=== PATIENT | female | born 1955 | race Caucasian/White ===

== ENCOUNTER 2016-08-07 13:04 | Emergency (ER) | payer BC ==
[2016-08-07 13:14] VITALS: TEMP 98.3; BMI 55.5
[2016-08-07] MEDS ORDERED: predniSONE 20 MG TABLET (UD) PO ONE (14:07)
[2016-08-07] MEDS ORDERED: diphenhydrAMINE HCL 25 MG CAPSULE (FP) PO ONE ×3 (14:07→14:23)
[2016-08-07] MEDS ORDERED: RANITIDINE HCL 150 MG TABLET (FP) PO ONE (14:08)
--- NOTE | 2016-08-07 14:15 | PDOC ---
History of Present Illness - General Chief Complaint: Edema Stated Complaint: ALLERGIC REACTION Time Seen by Provider: 08/07/16 13:30 History Source: Patient - History of Present Illness Timing/Duration: 1-3 hours Past History - Past Medical History Allergies/Adverse Reactions: Allergies Allergy/AdvReac Type Severity Reaction Status Date / Time No Known Allergies Allergy Verified 08/07/16 13:13 Home Medications: Ambulatory Orders Amlodipine Besylate [Norvasc -] 5 mg PO DAILY 02/02/14 Atorvastatin Ca [Lipitor] 20 mg PO DAILY 02/02/14 Valsartan/Hydrochlorothiazide [Diovan Hct 320-12.5 mg Tab] 1 each PO DAILY 02/02 Acetaminophen [Tylenol .Extra-Strength -] 1,000 mg PO Q6H PRN 02/04/14 Amoxicillin/Potassium Clav [Augmentin 500-125 Tablet] 1 each PO BID #14 tablet 02/04/14 Hydrocodone Bit/Acetaminophen [Vicodin 5-300mg -] 1 - 2 tab PO Q6H #60 tab 02/04 Ibuprofen [Advil -] 200 mg PO TID PRN 02/04/14 Epinephrine (Epi-Pen 0.3MG) [Epipen 0.3MG -] 0.3 mg IM ASDIR #2 pens 08/07/16 Famotidine [Pepcid] 20 mg PO DAILY #7 tablet 08/07/16 Prednisone [Deltasone -] 40 mg PO DAILY #8 tablet 08/07/16 HTN: Yes Hypercholesterolemia: Yes - Psycho/Social/Smoking Cessation Hx Anxiety: No Suicidal Ideation: No Smoking History: Never smoked Have you smoked in the past 12 months: No Hx Alcohol Use: Yes (SOCIAL) Drug/Substance Use Hx: No Substance Use Type: None Review of Systems - Review of Systems HEENTM: No: Throat Pain, Throat Swelling Respiratory: No: Shortness of Breath, Stridor, Wheezing *Physical Exam - Vital Signs Last Vital Signs Temp Pulse Resp BP Pulse Ox 98.3 F 82 20 146/75 94 L 08/07/16 13:10 08/07/16 13:10 08/07/16 13:10 08/07/16 13:10 08/07/16 13:10 - Physical Exam General Appearance: Yes: Appropriately Dressed. No: Apparent Distress HEENT: positive: Normal Voice, Pharynx Normal, Other (upper lip edema). negative: Scleral Icterus (R), Scleral Icterus (L) Neck: positive: Supple. negative: Stridor Respiratory/Chest: positive: Lungs Clear, Normal Breath Sounds. negative: Respiratory Distress Cardiovascular: positive: Regular Rate, S1, S2 Integumentary: positive: Dry, Warm Neurologic: positive: Fully Oriented, Alert, Normal Mood/Affect Medical Decision Making - Medical Decision Making 08/07/16 14:15 61-year-old female, morbidly obesed, high blood pressure, on valsartan, only allergy is to tumaric spice which cause pt to break out in hives as per pt, here with upper lip swelling that started approximately this morning approximately half an hour after eating tuna from [employer]. Patient states she is not certain if tumaric was in the premade tune that she bought. Patient denies rash, itching, tongue swelling, voice changes or respiratory symptoms. No history of anaphylaxis. Patient well-appearing and stable with symmetric edema to upper lip, oropharynx clear otherwise and no stridor. Chest/lungs clear. Angioedema m/l 2/2 ARB given isolated angioedema. Took 25 mg of Benadryl approximately 2 hours ago. Will give additional dose of Benadryl with steroids and H2 yina and observe in ED for 2 hrs as per discussion with ED attending 08/07/16 14:17 08/07/16 16:15 Pt's angioedema minimally improved in ED, remains stable w/ no stridor, voice changes or resp sxs. Can be discharged as per d/w ED attg. Appropriate rxs given Strict return precaution d/w pt. To stop ARB and discuss w/ PMD 08/07/16 16:17 *DC/Admit/Observation/Transfer Diagnosis at time of Disposition: Angio-edema Qualifiers: Encounter type: initial encounter Qualified Code(s): T78.3XXA - Angioneurotic edema, initial encounter - Discharge Dispostion Disposition: HOME Condition at time of disposition: Improved - Prescriptions Prescriptions: Prednisone [Deltasone -] 40 mg PO DAILY #8 tablet Epinephrine (Epi-Pen 0.3MG) [Epipen 0.3MG -] 0.3 mg IM ASDIR #2 pens Famotidine [Pepcid] 20 mg PO DAILY #7 tablet - Referrals Referrals: Jackie Cox MD [Primary Care Provider] - - Patient Instructions Printed Discharge Instructions: Angioedema Additional Instructions: Please stop taking your valsartan as we cannot be certain that it isn't the cause of your allergic reaction. Please follow up with your PMD as already scheduled tomorrow Return to ED for worsening of symptoms
[2016-08-07] MEDS ORDERED: predniSONE 20 MG TABLET (UD) ONE (14:20)
[2016-08-07] MEDS ORDERED: RANITIDINE HCL 150 MG TABLET (FP) ONE (14:21)
[2016-08-07 16:44] VITALS: BP 154/73; PULSE 72
== END 2016-08-07 16:51 | disposition home or self-care (01) ==
LOC: JER 13:04
DX: T78.3XXA Angioneurotic edema, initial encounter (principal); I10 Essential (primary) hypertension; E66.01 Morbid (severe) obesity due to excess calories; Z68.43 Body mass index [BMI] 50.0-59.9, adult
CPT/HCPCS: 99282-25